=== PATIENT | female | born 1970 | race Caucasian/White ===

== ENCOUNTER 2023-09-15 22:19 | Inpatient (IN) | payer SELFPAY ==
[2023-09-15 22:36] VITALS: BP 133/82; PULSE 146; RESP 34; TEMP 36.9; O2SAT 98
--- NOTE | 2023-09-15 22:46 | ECG_ITS ---
[facility] [address] Test Date: 2023-09-15 Pat Name: Roman Royal Department: Room: Gender: F Strap Cutter: : 1970 Requested By: Indigo Pham Order Number: [id number] Mira MD: Seth Yap M.D. Measurements Intervals [place] Rate: 141 P: 21 NV: 125 QRS: -20 QRSD: 101 T: 32 QT: 305 QTc: 468 Interpretive Statements SINUS TACHYCARDIA LEFTWARD AXIS PREVIOUS ANTERIOR WALL DE ABNORMAL ECG No previous ECG available for comparison Electronically Signed On 09-16-2023 08:13:22 CDT by Seth Yap M.D.
[2023-09-15 23:04] LABS: Basophils Percent Auto 0.5 % (0.2-1.2); Eosinophils Percent Auto 0.4 % (0-4.4); Hematocrit 38.9 % (37.0-47.0); Hemoglobin 12.6 g/dL (12.0-15.0); Immature Granulocyte Absolute 0.05 K/mm3 (0.00-0.031); Immature Granulocyte Percent A 0.7 % (0-0.5); Lymphocytes Absolute Auto 0.17 K/mm3 (0.9-3.2); Lymphocytes Percent Auto 2.3 % (18.3-44.2); Mean Corpuscular HGB Conc 32.4 g/dl (32-36); Mean Corpuscular Hemoglobin 25.7 pg (26-34); Mean Corpuscular Volume 79.2 fl (80-100); Mean Platelet Volume 11.1 fl (7.4-10.4); Monocytes Absolute Auto 0.2 K/mm3 (0.1-0.6); Monocytes Percent Auto 2.7 % (2.6-8.5); Neutrophils Percent Auto 93.4 % (45.5-73.1); Platelet Count Result 194 k/mm3 (150-375); Red Blood Count 4.91 M/mm3 (4.2-5.4); White Blood Count 7.5 K/mm3 (4.5-10.0)
[2023-09-15] MEDS: LACTATED RINGERS 1,000 ML 999 ML IV CONT ×2 (23:12)
[2023-09-15] MEDS: LOPERAMIDE HCL 2 MG CAPSULE 4 MG PO (23:13)
[2023-09-15] MEDS: ONDANSETRON INJ 4 MG/2 ML VIAL IV PUSH (23:13)
[2023-09-15 23:19] LABS: Lactic Acid Reflex 1.9 mmol/L (0.7-2.0)
[2023-09-15 23:25] LABS: Alanine Aminotransferase 20 U/L (6-35); Albumin Level 3.6 g/dL (3.5-5.1); Alkaline Phosphatase 153 U/L (38-126); Anion Gap 7 mmol/L (4-12); Aspartate Amino Transferase 26 U/L (14-36); Bilirubin,Total 0.9 mg/dL (0.2-1.3); Blood Urea Nitrogen 15 mg/dL (7-17); Calcium 8.7 mg/dL (8.4-10.2); Carbon Dioxide 28 mmol/L (22-30); Chloride 92 mmol/L (98-107); Estimated CRCL calculation 53 ml/min; Estimated Glomerular Filt Rate 58; Glucose 548 mg/dL (65-110); Lipase 166 U/L (23-300); Potassium 3.7 mmol/L (3.4-5.0); Sodium 127 mmol/L (137-145)
[2023-09-15 23:30] LABS: Troponin I < 0.012 ng/mL (0.000-0.034)
[2023-09-16] VITALS (20 sets, daily range): BP systolic 128–185; BP diastolic 71–103; PULSE 81–148; RESP 16–20; TEMP 36.4–37.9; O2SAT 97–100; BMI 26.2
[2023-09-16] MEDS: dilTIAZem HCl INJ 25 MG/5 ML VIAL 10 MG IV PUSH ×2 (00:29→01:01)
[2023-09-16 00:31] LABS: Appearance Urine Clear (Clear); Bacteria Urine None Seen /hpf; Bilirubin Urine Negative (Negative); Blood Urine 2+ (Negative); Color Urine Yellow (Yellow); Glucose Urine UA 3+ mg/dL (Negative); Ketones Urine Negative (Negative); Leukocyte Esterase Ur Trace LEU/UL (Negative); Nitrate Urine Negative (Negative); Non Pathogenic Casts 0-2; Protein Urine 1+ mg/dL (Negative); Specific Grav Ur 1.024 (1.001-1.035); Squamous Epithelial Cell Urine None Seen /hpf (Few); WBC Urine 21-50 /hpf (0-3); pH Urine 6.5 (5.0-9.0)
[2023-09-16 00:34] LABS: Add Urine Microscopic? YES
--- NOTE | 2023-09-16 00:34 | ED.NAVMDI ---
HPI - Nausea/Vomiting/Diarrhea General Chief complaint: Nausea/Vomiting/Diarrhea Stated complaint: chills, N/V/D Time Seen by Provider: 09/15/23 22:45 History of Present Illness HPI Narrative: patient states that for last stay she has been having nausea, vomiting, diarrhea, and has not been able to keep anything down. She feels very tired. Denies any abdominal pain. Related Data Allergies Allergy/AdvReac Type Severity Reaction Status Date / Time No Known Allergies Allergy Unknown Unverified 12/29/07 10:53 Review of Systems Review of Systems: All systems reviewed & are unremarkable except as noted in HPI and below Exam Narrative: EXAMINATION OF ORGAN SYSTEMS/BODY AREAS: Constitutional: Vital signs per nursing GENERAL: Appears tired HEAD: Normal with no signs of head trauma. EYES: EOMI, conjunctiva normal ENT: Hearing grossly intact LUNGS: Nonlabored breathing. HEART: Tachycardic ABD: [Soft], [nontender to palpation] EXT: Normal range of motion SKIN: [No rashes or lesions.] NEURO: [Alert and oriented x 3. No gross focal sensory or strength deficits.] PSYCH: Normal affect Course Vital Signs Vital signs: Vital Signs Temperature 98.5 F 09/15/23 22:36 Pulse Rate 146 H 09/15/23 22:36 Respiratory Rate 34 H 09/15/23 22:36 Blood Pressure 133/82 09/15/23 22:36 Pulse Oximetry 98 09/15/23 22:36 Oxygen Delivery Room Air 09/15/23 22:36 Temperature 98.5 F 09/15/23 22:36 Pulse Rate 140 H 09/16/23 01:41 Respiratory Rate 16 09/16/23 01:41 Blood Pressure 152/97 H 09/16/23 01:41 Pulse Oximetry 100 09/16/23 01:41 Oxygen Delivery Room Air 09/15/23 22:36 MDM - Nausea/Vomiting/Diarrhea MDM Narrative Medical decision making narrative: Patient presenting with nausea, vomiting, dehydration, she is persistent tachycardic here, even after 2 L of IV fluids, she is feeling better with improved nausea vomiting however her heart rate continues to be 140s. I am highly suspicious of possible atrial flutter, will try controlling this with diltiazem, patient does not think she has a history of this, is agreeable to inpatient admission and further evaluation and treatment at this time. No improvement with diltiazem, patient agreeable to trying adenosine, 6 mg and 12 mg administered and patient now in sinus tachycardia, 120 he is heart rate, will continue to give IV fluids, discussed with hospitalist for admission. She states that she is feeling better. Lab Data 09/15/23 22:55 09/15/23 22:55 Labs: Lab Results 09/15/23 09/16/23 Range/Units 22:55 00:09 WBC 7.5 (4.5-10.0) K/mm3 RBC 4.91 (4.2-5.4) M/mm3 Hgb 12.6 (12.0-15.0) g/dL Hct 38.9 (37.0-47.0) % MCV 79.2 L (80-100) fl MCH 25.7 L (26-34) pg MCHC 32.4 (32-36) g/dl RDW 13.0 (11.5-14.5) % Plt Count 194 (150-375) k/mm3 MPV 11.1 H (7.4-10.4) fl Immature Gran % (Auto) 0.7 H (0-0.5) % Neut % (Auto) 93.4 H (45.5-73.1) % Lymph % (Auto) 2.3 L (18.3-44.2) % Sullivan % (Auto) 2.7 (2.6-8.5) % Eos % (Auto) 0.4 (0-4.4) % Baso % (Auto) 0.5 (0.2-1.2) % Lymph # (Auto) 0.17 L (0.9-3.2) K/mm3 Sullivan # (Auto) 0.2 (0.1-0.6) K/mm3 Eos # (Auto) 0.0 (0-0.3) K/mm3 Baso # (Auto) 0.0 (0.0-0.1) K/mm3 Abs Immat Gran (auto) 0.05 H (0.00-0.031) K/mm3 Absolute Neuts (auto) 7.0 H (1.3-6.7) K/mm3 Absolute Nucleated RBC 0.000 (0.0-0.012) K/mm3 Nucleated RBC % 0.0 (0.0-0.2) % Sodium 127 L (137-145) mmol/L Potassium 3.7 (3.4-5.0) mmol/L Chloride 92 L (98-107) mmol/L Carbon Dioxide 28 (22-30) mmol/L Anion Gap 7 (4-12) mmol/L BUN 15 (7-17) mg/dL Creatinine 1.00 (0.7-1.0) mg/dL Estim Creat Clear Calc 53 ml/min Estimated GFR 58 L (59 - ) Glucose 548 H* (65-110) mg/dL Lactic Acid 1.9 (0.7-2.0) mmol/L Calcium 8.7 (8.4-10.2) mg/dL Total Bilirubin 0.9 (0.2-1.3) mg/dL AST 26 (14-36) U/L ALT 20 (
[2023-09-16] MEDS: dilTIAZem 100 MG/100 ML 100 MG/100 ML BAG IV CONT (01:00)
--- NOTE | 2023-09-16 02:01 | PC.NURSE ---
This RN titrated pt cardizem drip up 5 around 0147 because heart rate was still in the 140s after 2 cardizem IV pushes and %mg of cardizem drip.
--- NOTE | 2023-09-16 02:34 | PM.IMHP ---
H&P: HPI History of Present Illness Date/Time: 09/16/23 02:34 Chief Complaint: Patient came to the ER for evaluation of nausea vomiting diarrhea and palpitations Narrative: Pleasant 50 years old lady who came to the ER complaining of feeling weak tired and fatigued with nausea vomiting diarrhea which is causing her to have palpitations. Workup was done in the ER which showed uncontrolled diabetes mellitus which sugar level of 548 and dehydration. Her lactic acid and anion gap were within normal limits ruling out DKA or lactic acidosis. Her heart rate was in 140s consistent with atrial flutter which is new for her. Patient given hydration and started on IV diltiazem drip after bolus which is helping with her heart rate. Patient started on was moderate dose insulin sliding scale with coverage. She is being admitted for IV hydration, IV Cardizem drip, tele monitoring, follow-up cardiac enzymes, cardiac evaluation, 2D echo and further workup. Review of Systems Review of Systems: 14 systems were reviewed with pertinent positives and negatives per HPI. Except as documented in the HPI/progress notes, all other systems were reviewed and are negative. All systems reviewed & are unremarkable except as noted in HPI and below Meds Home Medications and Allergies Allergies Allergy/AdvReac Type Severity Reaction Status Date / Time No Known Allergies Allergy Unknown Unverified 12/29/07 10:53 Vital Signs Vital Signs - 24 hr 09/15/23 22:36 09/16/23 01:00 09/16/23 01:41 Temperature 36.9 C Pulse Rate 146 H 143 H 140 H Respiratory Rate 34 H 16 Blood Pressure 133/82 185/103 H 152/97 H Pulse Oximetry 98 100 Oxygen Delivery Room Air Exam Narrative: PHYSICAL EXAMINATION: Vital signs: Please see the chart General physical exam: 53 years old white female, lying in bed, pleasant and cooperative with exam, appears to be weak tired and fatigued Head/eyes: Atraumatic, EOMI, PERRLA ENT: +dry mucous membranes, nasal passages clear Neck: Supple, full range of motion, trachea midline CVS: S1 + S2, + irregularly irregular rate and rhythm with rapid ventricular response Respiratory: Bilaterally fair air entry in both lung snyder, mild B/L crackles, symmetric chest expansion, no distress Abdomen: Soft, non-tender, bowel sounds +ve, no organomegaly Extremities: No clubbing, no cyanosis, no edema, no calf tenderness Musculoskeletal: Moves all, adequate range of motion, no muscle spasms Skin: Warm, dry, no jaundice, no cyanosis Neurological: Awake, alert, oriented x 3, cranial nerves II-XII intact, no focal neurological deficits Psychiatric: + anxious mood due to palpitations and dehydration, Non suicidal H&P: Results Labs Labs: Short CBC 09/15/23 Range/Units 22:55 WBC 7.5 (4.5-10.0) K/mm3 Hgb 12.6 (12.0-15.0) g/dL Hct 38.9 (37.0-47.0) % Plt Count 194 (150-375) k/mm3 BMP 09/15/23 22:55 Sodium 127 L Potassium 3.7 Chloride 92 L Carbon Dioxide 28 BUN 15 Creatinine 1.00 Glucose 548 H* Calcium 8.7 Cardiac Enzymes 09/15/23 Range/Units 22:55 Troponin I < 0.012 (0.000-0.034) ng/mL Liver Function 09/15/23 Range/Units 22:55 Total Bilirubin 0.9 (0.2-1.3) mg/dL AST 26 (14-36) U/L ALT 20 (6-35) U/L Alkaline Phosphatase 153 H (38-126) U/L Albumin 3.6 (3.5-5.1) g/dL Urine 09/16/23 Range/Units 00:09 Urine Color Yellow (Yellow) Urine Appearance Clear (Clear) Urine pH 6.5 (5.0-9.0) Ur Specific [place] 1.024 (1.001-1.035) Urine Protein 1+ H (Negative) mg/dL Urine Glucose (UA) 3+ H (Negative) mg/dL Assessment and Plan Assessment and plan (1) Uncontrolled blood glucose: Code(s): R73.09 - Other abnormal glucose Status: Acute (2) Dehydration: Code(s): E86.0 - Dehydration Status: Acute (3) New onset a-fib: Code(s): I48.91 - Unspecified atrial fibrillation Status: Deleted (4) New onset
--- NOTE | 2023-09-16 03:04 | PC.NURSE ---
This RN was verbally ordered by Dr. Romero to hang a bag of 1000L of Normal saline and 6 of adenosine at 0254 due to pt heart rate not decreasing off cardizem drip. Pt heart rate dropped to 120 then went right back up to 140s. Vero verbal ordered another 12 of adenosine at 0257. Pt heart rate decreased from 101 then incresed back to 139. Dr. romero states she will resume cardizem drip and titrate it another 5 while she speaks to global logistics analyst. This RN titrated cardizem to 15mg/hr at 0302.
[2023-09-16 04:25] LABS: Troponin I < 0.012 ng/mL (0.000-0.034)
[2023-09-16 04:54] LABS: Glucose Point of Care 360 mg/dl (65-105)
[2023-09-16] MEDS: POTASSIUM CHLORIDE 20 MEQ ER TABLET 40 MEQ PO (05:00)
[2023-09-16] MEDS: INSULIN ASPART (*BKC) 100 UNITS/ML 6 UNITS SUB-Q (05:03)
--- NOTE | 2023-09-16 05:11 | ADMGEN ---
This patient, Roman Royal, was admitted to IMU Room 209-01 on 09/16/23 at 0430. Patient/family oriented to hospital policies and general routines including ID bracelet, bed and alarms, visiting hours, pain management, procedures, bathroom and other care routines, personal items, smoking policy, room service/diet, and visiting hours. Information on how to activate the Rapid Response Team has been discussed. Patient/Family are encouraged to report perceived risks to care and to ask questions if they do not understand what they are told or what they should do.
[2023-09-16] MEDS: SODIUM CHLORIDE 0.9% IV 1,000 ML 75 ML IV CONT ×2 (06:16→19:23)
[2023-09-16] MEDS: KCL 20 MEQ/SW 100 ML 100 ML 50 MEQ IVPB (06:17)
--- NOTE | 2023-09-16 06:48 | PC.NURSE ---
09/16/23 @ 0430-Pt arrived to IMU with cardizem gtt running at 15mg/hr. Order changed per ER .
[2023-09-16 08:08] LABS: Glucose Point of Care 316 mg/dl (65-105)
[2023-09-16] MEDS: dilTIAZem 100 MG/100 ML 100 MG/100 ML BAG 15 MG IV CONT (08:47)
[2023-09-16] MEDS: ASCORBIC ACID 500 MG TABLET PO (08:55)
[2023-09-16] MEDS: ASPIRIN 81 MG CHEWABLE TABLET PO (08:55)
[2023-09-16] MEDS: VITAMIN E 1,000 UNIT CAPSULE 1000 UNIT PO (08:55)
[2023-09-16] MEDS: OMEGA 3 POLYUNSAT FATTY ACIDS 1 GM CAP PO (08:55)
[2023-09-16] MEDS: CHOLECALCIFEROL 1,000 UNITS TABLET 2000 UNITS PO (08:55)
[2023-09-16] MEDS: MULTIVITAMIN HEMATINIC (*BKC) TABLET 1 TABLET PO (08:56)
[2023-09-16] MEDS: ZINC SULFATE 220 MG CAPSULE PO (08:56)
[2023-09-16] MEDS: ENOXAPARIN 40 MG/0.4 ML SYRINGE SUB-Q (08:56)
[2023-09-16] MEDS: INSULIN ASPART (*BKC) 100 UNITS/ML SUB-Q ×2 (08:58→16:34)
--- NOTE | 2023-09-16 09:27 | PM.CNCAR ---
Assessment and Plan Assessment and plan (1) Tachyarrhythmia: Code(s): R00.0 - Tachycardia, unspecified Status: Acute Plan This is a 53-year-old lady who has sinus tachycardia as a function of her gastroenteritis with some volume depletion as well as having very poorly controlled diabetes with a blood glucose of over 500. She does not have any cardiac arrhythmia other than sinus tachycardia which is of course a physiologic, not a pathologic arrhythmia. IV diltiazem will be stopped at this time. No further cardiac workup of this is necessary. It is extremely important that she receives some affective treatment of her diabetes. Explained to the patient that it is a very poor decision declined medical treatment of diabetes. Seth Yap MD [facility] History of Present Illness History of Present Illness Consult date/time: 09/16/23 09:27 Reason For Visit: Tachycardia, N/V/D Narrative: This is a 53-year-old lady I am seeing at the request of the hospitalist today apparently because she was suspected of having an atrial tachyarrhythmia such as atrial flutter after present to the emergency room last evening. She came to the emergency department because she has been feeling ill for the last 5-6 days with nausea abdominal cramping some diarrhea and vomiting. She has had these symptoms and felt bad enough yesterday where she elected to come into the emergency room. She thought earlier in the day the symptoms were resolving and she had some sort of gastroenteritis that would pass but she felt bad enough to come in to be seen. In the emergency room her electrocardiogram shows sinus tachycardia with a heart rate of 141. This was suspected of representing atrial flutter and so she was started on a IV diltiazem infusion and admitted to the hospital. Her lab data was also remarkable for evidence of dehydration and marked hyperglycemia with a blood glucose level of over 500. The patient states that she is known to have diabetes and has elected not to treat her diabetes because she can not afford her medication. Since being admitted to the hospital she remains in sinus rhythm/sinus tachycardia. She was not aware of any sense of chest pain shortness of breath palpitations she describes no history of syncope orthopnea or PND. Review of Systems Constitutional: Constitutional: Reports lethargy Eyes: Eyes: Reports no additional eye complaints ENT: Reports system reviewed and no additional complaints, except as documented Cardiovascular: Cardiovascular: Reports no additional cardiovascular complaints Respiratory: Respiratory: Reports no additional respiratory complaints Gastrointestinal: Gastrointestinal: Reports as per HPI, Reports diarrhea, Reports nausea and Reports vomiting Genitourinary: Genitourinary: Reports no additional female genitourinary complaints Musculoskeletal: Musculoskeletal: Reports no additional musculoskeletal complaints Integumentary/Breasts: Skin/Breast: Reports system reviewed and no additional complaints, except as docu Neurologic: Reports system reviewed and no additional complaints, except as documented Endocrine: Endocrine: Reports no additional endocrine complaints Hematologic/Lymphatic: Hematologic/Lymphatic: Reports no additional hematologic/lymphatic complaints Allergic/Immunologic: Allergic/Immunologic: Reports no additional allergic/immunologic complaints [facility] Family History Family History Mother Enlarged heart Hypertension Diabetes mellitus Father Kidney failure Diabetes mellitus Hypertension Social History Social History Smoking packs per day: 0.5 Smoking cigarettes per day: 10.0 Years smoked: 3 Smoking pack-years: 1.50 Smoking status: Former smoker Tobacco type: cigarettes Alcohol intake: never Substance use: never Substance use type: does not use Do Yo
[2023-09-16 10:58] LABS: Anion Gap 4 mmol/L (4-12); Blood Urea Nitrogen 10 mg/dL (7-17); Calcium 8.2 mg/dL (8.4-10.2); Carbon Dioxide 28 mmol/L (22-30); Chloride 94 mmol/L (98-107); Estimated CRCL calculation 48 ml/min; Estimated Glomerular Filt Rate 52; Glucose 359 mg/dL (65-110); Potassium 4.3 mmol/L (3.4-5.0); Sodium 126 mmol/L (137-145); Troponin I < 0.012 ng/mL (0.000-0.034)
--- NOTE | 2023-09-16 11:09 | PM.IMPN ---
Progress Note: A&P Assessment and Plan (1) Uncontrolled blood glucose: Code(s): R73.09 - Other abnormal glucose Status: Acute (2) Dehydration: Code(s): E86.0 - Dehydration Status: Acute (3) New onset atrial flutter: Code(s): I48.92 - Unspecified atrial flutter Status: Acute Plan Continuous cardiac tele-monitoring Patient received 2 L IV hydration in the ER Gentle IV hydration ordered with normal saline at 75 cc/hour Strict input and output monitoring Monitor renal functions closely Patient given IV Cardizem bolus in the ER -started on IV Cardizem drip to be titrated to keep heart rate around 100 1st set of cardiac enzymes is negative cardiology saw her- stopped the drip- no further cardiac workup needed Hemoglobin A1c level ordered Continue diabetic meds Accu-Cheks qAC and qHS ordered with medium-dose insulin coverage as per protocol Monitor blood sugar levels closely -will add lantus -will add diabetic education - pot was not on any emds as could not afford them and wasnot seen per pcp in a while Patient ordered IV and oral potassium replacement for borderline potassium which will go down when patient's blood sugar has improved Repeat labs in a.m. Electrolyte replacement as per protocol. Patient will be monitored very closely on the floor. home meds reviewed Time Spent With Patient Time with patient: Greater than 35 minutes Subjective Date/time seen: 09/16/23 11:09 Interval history: 50 years old female with PMH [id number] complinat with meds, admitted from ER complaining of feeling weak tired and fatigued with nausea vomiting diarrhea. Workup was done in the ER which showed uncontrolled diabetes mellitus which sugar level of 548 and dehydration. Her lactic acid and anion gap were within normal limits ruling out DKA or lactic acidosis. Her heart rate was in 140s consistent with atrial flutter which is new for her. Patient given hydration and started on IV diltiazem drip after bolus which is helping with her heart rate. Patient started on was moderate dose insulin sliding scale with coverage. She is being admitted for IV hydration, IV Cardizem drip, tele monitoring, follow-up cardiac enzymes, cardiac evaluation, 2D echo and further workup. 09/15- this am HR in 110- she was seen per card and cardiac work up at this time is not warranted. Her cardizem drip drip was stopped. Goal is to re-hydrate, get BS under control. consult to clinical systems educator. Need to find new PCP and insulin regimen to go home on. Pt omid have insurance-so cannot get anything expensive. She works nights- so drinks a lot of caffeinated drinks- including regular soda-which we discussed with her she would need to stop and switch to sugar free. she also has to be careful; with caffeine-as it can further cause dehydration and cause tachycardia. We will movers her out of IMU to tele floor, focus on diabetic educations, work with care coordination to set up PCP and find resources for medication assistance. if stable tomorrow- possible discharge Review of Systems Review of Systems: 14 systems were reviewed with pertinent positives and negatives per HPI. Except as documented in the HPI/progress notes, all other systems were reviewed and are negative. All systems reviewed & are unremarkable except as noted in HPI and below Constitutional: Constitutional: Denies body ache(s) and Denies chills Cardiovascular: Cardiovascular: Denies chest pain and Reports palpitations Respiratory: Respiratory: Denies chest congestion and Denies cough Gastrointestinal: Gastrointestinal: Reports diarrhea, Reports nausea and Reports vomiting Exam Narrative: PHYSICAL EXAMINATION: Vital signs: Please see the chart General physical exam: 53 years old white female, lying in bed, pleasant and cooperative with exam, appears to be weak tired and fatigued Head/eyes: Atraumatic, EOMI, PERRLA ENT: +dry mucous membranes, nasal passages clear N
[2023-09-16 12:21] LABS: Glucose Point of Care 315 mg/dl (65-105)
[2023-09-16] MEDS: INSULIN ASPART (*BKC) 100 UNITS/ML 10 UNITS SUB-Q (12:26)
[2023-09-16 13:08] LABS: Cholesterol 147 mg/dL (0-200); HDL Direct 11 mg/dL; Triglycerides 263 mg/dL (<150)
[2023-09-16 13:19] LABS: LDL Cholesterol Direct 91 mg/dL
[2023-09-16 14:09] LABS: Glucose Point of Care 250 mg/dl (65-105)
[2023-09-16 16:31] LABS: Glucose Point of Care 235 mg/dl (65-105)
[2023-09-16 20:51] LABS: Glucose Point of Care 277 mg/dl (65-105)
[2023-09-16] MEDS: INSULIN GLARGINE (*BKC) 100 UNITS/ML 15 UNITS SUB-Q (21:24)
[2023-09-17] VITALS (11 sets, daily range): BP systolic 140–151; BP diastolic 78–95; PULSE 103–114; RESP 16–20; TEMP 36.1–36.9; O2SAT 97–100
[2023-09-17 04:48] LABS: Basophils Percent Auto 0.4 % (0.2-1.2); Eosinophils Absolute Auto 0.1 K/mm3 (0-0.3); Eosinophils Percent Auto 1.3 % (0-4.4); Hematocrit 33.5 % (37.0-47.0); Hemoglobin 10.4 g/dL (12.0-15.0); Immature Granulocyte Absolute 0.07 K/mm3 (0.00-0.031); Immature Granulocyte Percent A 0.7 % (0-0.5); Lymphocytes Absolute Auto 0.64 K/mm3 (0.9-3.2); Mean Corpuscular Hemoglobin 25.4 pg (26-34); Mean Corpuscular Volume 81.7 fl (80-100); Mean Platelet Volume 11.2 fl (7.4-10.4); Monocytes Absolute Auto 0.9 K/mm3 (0.1-0.6); Monocytes Percent Auto 8.2 % (2.6-8.5); Neutrophils Percent Auto 83.4 % (45.5-73.1); Platelet Count Result 185 k/mm3 (150-375); Red Cell Distribution Width 13.1 % (11.5-14.5); White Blood Count 10.8 K/mm3 (4.5-10.0)
[2023-09-17 05:05] LABS: Anion Gap 4 mmol/L (4-12); Blood Urea Nitrogen 11 mg/dL (7-17); Calcium 8.4 mg/dL (8.4-10.2); Carbon Dioxide 28 mmol/L (22-30); Chloride 101 mmol/L (98-107); Estimated CRCL calculation 58 ml/min; Estimated Glomerular Filt Rate > 60; Glucose 238 mg/dL (65-110); Magnesium 1.7 mg/dL (1.6-2.3); Phosphorus 2.5 mg/dL (2.5-4.5); Potassium 3.9 mmol/L (3.4-5.0); Sodium 133 mmol/L (137-145)
[2023-09-17 07:36] LABS: Glucose Point of Care 195 mg/dl (65-105)
[2023-09-17] MEDS: SODIUM CHLORIDE 0.9% IV 1,000 ML 75 ML IV CONT (07:51)
[2023-09-17] MEDS: MULTIVITAMIN HEMATINIC (*BKC) TABLET 1 TABLET PO (07:52)
[2023-09-17] MEDS: ASCORBIC ACID 500 MG TABLET PO (07:52)
[2023-09-17] MEDS: ZINC SULFATE 220 MG CAPSULE PO (07:52)
[2023-09-17] MEDS: ASPIRIN 81 MG CHEWABLE TABLET PO (07:52)
[2023-09-17] MEDS: CHOLECALCIFEROL 1,000 UNITS TABLET 2000 UNITS PO (07:52)
[2023-09-17] MEDS: OMEGA 3 POLYUNSAT FATTY ACIDS 1 GM CAP PO (07:53)
[2023-09-17] MEDS: VITAMIN E 1,000 UNIT CAPSULE 1000 UNIT PO (07:53)
[2023-09-17] MEDS: ENOXAPARIN 40 MG/0.4 ML SYRINGE SUB-Q (09:44)
--- NOTE | 2023-09-17 10:07 | PM.IMPN ---
Progress Note: A&P Assessment and Plan (1) Uncontrolled blood glucose: Code(s): R73.09 - Other abnormal glucose Status: Acute (2) Dehydration: Code(s): E86.0 - Dehydration Status: Acute (3) New onset atrial flutter: Code(s): I48.92 - Unspecified atrial flutter Status: Acute Plan Continuous cardiac tele-monitoring Patient received 2 L IV hydration in the ER Gentle IV hydration ordered with normal saline at 75 cc/hour-will stop today Strict input and output monitoring Monitor renal functions closely Patient given IV Cardizem bolus in the ER -started on IV Cardizem drip to be titrated to keep heart rate around 100 1st set of cardiac enzymes is negative cardiology saw her- stopped the drip- no further cardiac workup needed Hemoglobin A1c level ordered Continue diabetic meds Accu-Cheks qAC and qHS ordered with medium-dose insulin coverage as per protocol Monitor blood sugar levels closely - lantus 15 units- started last night 09/15 -will add diabetic education - pt was not on any meds as could not afford them and was not seen per pcp in a while Patient ordered IV and oral potassium replacement for borderline potassium which will go down when patient's blood sugar has improved Repeat labs in a.m. Electrolyte replacement as per protocol. Patient will be monitored very closely on the floor. home meds reviewed Time Spent With Patient Time with patient: 25 - 35 minutes Subjective Date/time seen: 09/17/23 10:07 Interval history: 50 years old female with PMH [id number] compliant with meds, admitted from ER complaining of feeling weak tired and fatigued with nausea vomiting diarrhea. Workup was done in the ER which showed uncontrolled diabetes mellitus which sugar level of 548 and dehydration. Her lactic acid and anion gap were within normal limits ruling out DKA or lactic acidosis. Her heart rate was in 140s consistent with atrial flutter which is new for her. Patient given hydration and started on IV diltiazem drip after bolus which is helping with her heart rate. Patient started on was moderate dose insulin sliding scale with coverage. She is being admitted for IV hydration, IV Cardizem drip, tele monitoring, follow-up cardiac enzymes, cardiac evaluation, 2D echo and further workup. 09/15- this am HR in 110- she was seen per card and cardiac work up at this time is not warranted. Her cardizem drip drip was stopped. Goal is to re-hydrate, get BS under control. consult to educator senior clinical. Need to find new PCP and insulin regimen to go home on. Pt doensot have insurance-so cannot get anything expensive. She works nights- so drinks a lot of caffeinated drinks- including regular soda-which we discussed with her she would need to stop and switch to sugar free. she also has to be careful; with caffeine-as it can further cause dehydration and cause tachycardia. We will house mover her out of IMU to tele floor, focus on diabetic educations, work with care coordination to set up PCP and find resources for medication assistance. if stable tomorrow- possible discharge. 09/16- pt met with educator senior clinical yesterday, [facility] assistance program info is provided for pt. administrative operations coordinator met with pt- info is provided on PCP and good RX. BS this am is 195. Averaging in 250's now. Will discuss initiating statin for primary prevention- agreeable to start. will need ophthalmology f/u yearly as well as microalb/cr yearly lab. Move out of IMU- monitor till tomorrow and anticipate discharge tomorrow. Review of Systems Review of Systems: 14 systems were reviewed with pertinent positives and negatives per HPI. Except as documented in the HPI/progress notes, all other systems were reviewed and are negative. She reports feeling better today All systems reviewed & are unremarkable except as noted in HPI and below Constitutional: Constitutional: Denies body ache(s) and Denies chills Cardiovascular: Cardiovascular: Denies chest p
[2023-09-17] MEDS: INSULIN ASPART (*BKC) 100 UNITS/ML SUB-Q ×2 (11:38→16:53)
[2023-09-17 11:42] LABS: Glucose Point of Care 266 mg/dl (65-105)
[2023-09-17 16:52] LABS: Glucose Point of Care 257 mg/dl (65-105)
[2023-09-17 20:08] LABS: Glucose Point of Care 192 mg/dl (65-105)
[2023-09-17] MEDS: ATORVASTATIN 10 MG TABLET PO (20:53)
[2023-09-17] MEDS: INSULIN GLARGINE (*BKC) 100 UNITS/ML 15 UNITS SUB-Q (20:55)
[2023-09-18] VITALS (7 sets, daily range): BP systolic 166–171; BP diastolic 95–104; PULSE 99–115; RESP 20; TEMP 36.8; O2SAT 100
[2023-09-18 04:45] LABS: Basophils Percent Auto 0.3 % (0.2-1.2); Eosinophils Absolute Auto 0.1 K/mm3 (0-0.3); Eosinophils Percent Auto 1.6 % (0-4.4); Hematocrit 32.6 % (37.0-47.0); Hemoglobin 10.1 g/dL (12.0-15.0); Immature Granulocyte Absolute 0.11 K/mm3 (0.00-0.031); Immature Granulocyte Percent A 1.4 % (0-0.5); Lymphocytes Absolute Auto 0.71 K/mm3 (0.9-3.2); Lymphocytes Percent Auto 9.2 % (18.3-44.2); Mean Corpuscular Hemoglobin 25.3 pg (26-34); Mean Corpuscular Volume 81.5 fl (80-100); Mean Platelet Volume 11.4 fl (7.4-10.4); Monocytes Absolute Auto 0.7 K/mm3 (0.1-0.6); Monocytes Percent Auto 9.1 % (2.6-8.5); Neutrophils Absolute Auto 6.1 K/mm3 (1.3-6.7); Neutrophils Percent Auto 78.4 % (45.5-73.1); Platelet Count Result 207 k/mm3 (150-375); Red Cell Distribution Width 13.2 % (11.5-14.5); White Blood Count 7.7 K/mm3 (4.5-10.0)
[2023-09-18 05:01] LABS: Anion Gap 6 mmol/L (4-12); Blood Urea Nitrogen 11 mg/dL (7-17); Calcium 8.6 mg/dL (8.4-10.2); Carbon Dioxide 28 mmol/L (22-30); Chloride 99 mmol/L (98-107); Estimated CRCL calculation 65 ml/min; Estimated Glomerular Filt Rate > 60; Glucose 247 mg/dL (65-110); Potassium 3.6 mmol/L (3.4-5.0); Sodium 133 mmol/L (137-145)
[2023-09-18 08:09] LABS: Glucose Point of Care 197 mg/dl (65-105)
[2023-09-18] MEDS: VITAMIN E 1,000 UNIT CAPSULE 1000 UNIT PO (09:26)
[2023-09-18] MEDS: MULTIVITAMIN HEMATINIC (*BKC) TABLET 1 TABLET PO (09:26)
[2023-09-18] MEDS: ASCORBIC ACID 500 MG TABLET PO (09:26)
[2023-09-18] MEDS: OMEGA 3 POLYUNSAT FATTY ACIDS 1 GM CAP PO (09:26)
[2023-09-18] MEDS: ENOXAPARIN 40 MG/0.4 ML SYRINGE SUB-Q (09:27)
[2023-09-18] MEDS: ZINC SULFATE 220 MG CAPSULE PO (09:27)
[2023-09-18] MEDS: ASPIRIN 81 MG CHEWABLE TABLET PO (09:27)
[2023-09-18] MEDS: CHOLECALCIFEROL 1,000 UNITS TABLET 2000 UNITS PO (09:27)
[2023-09-18] MEDS: carvediloL 6.25 MG TABLET PO (10:02)
[2023-09-18 11:27] LABS: Glucose Point of Care 199 mg/dl (65-105)
--- NOTE | 2023-09-18 13:37 | PM.DS ---
DS: Admitting Diagnosis Discharge Date 09/19/2023 Admitting Diagnosis Hyperglycemia/Nausea and vomiting DS: Discharge Diagnosis Discharge Diagnosis (1) Uncontrolled blood glucose: Code(s): R73.09 - Other abnormal glucose Status: Acute (2) Dehydration: Code(s): E86.0 - Dehydration Status: Acute (3) New onset atrial flutter: Code(s): I48.92 - Unspecified atrial flutter Status: Acute (4) Diabetes mellitus: Qualifiers: Diabetes mellitus complication status: with hyperglycemia Diabetes mellitus mcc insulin use: without long term care social worker use Diabetes mellitus type: type 2 Qualified Code(s): E11.65 - Type 2 diabetes mellitus with hyperglycemia Code(s): E11.9 - Type 2 diabetes mellitus without complications Status: Acute Plan Continuous cardiac tele-monitoring Patient received 2 L IV hydration in the ER Gentle IV hydration ordered with normal saline at 75 cc/hour-will stop today Strict input and output monitoring Monitor renal functions closely Patient given IV Cardizem bolus in the ER -started on IV Cardizem drip to be titrated to keep heart rate around 100 1st set of cardiac enzymes is negative cardiology saw her- stopped the drip- no further cardiac workup needed Hemoglobin A1c level ordered Continue diabetic meds Accu-Cheks qAC and qHS ordered with medium-dose insulin coverage as per protocol Monitor blood sugar levels closely - lantus 15 units- started last night 09/15 -will add diabetic education - pt was not on any meds as could not afford them and was not seen per pcp in a while Patient ordered IV and oral potassium replacement for borderline potassium which will go down when patient's blood sugar has improved Repeat labs in a.m. Electrolyte replacement as per protocol. Patient will be monitored very closely on the floor. home meds reviewed DS: Summary Hospital Course Reason for hospitalization: Hyperglycemia/Nausea and vomiting Hospital Course: Admission: Medical record Interval history: 50 years old female with PMH [id number] compliant with meds, admitted from ER complaining of feeling weak tired and fatigued with nausea vomiting diarrhea. Workup was done in the ER which showed uncontrolled diabetes mellitus which sugar level of 548 and dehydration. Her lactic acid and anion gap were within normal limits ruling out DKA or lactic acidosis. Her heart rate was in 140s consistent with atrial flutter which is new for her. Patient given hydration and started on IV diltiazem drip after bolus which is helping with her heart rate. Patient started on was moderate dose insulin sliding scale with coverage. She is being admitted for IV hydration, IV Cardizem drip, tele monitoring, follow-up cardiac enzymes, cardiac evaluation, 2D echo and further workup. 09/15- this am HR in 110- she was seen per card and cardiac work up at this time is not warranted. Her cardizem drip drip was stopped. Goal is to re-hydrate, get BS under control. consult to personal development educator. Need to find new PCP and insulin regimen to go home on. Pt doensot have insurance-so cannot get anything expensive. She works nights- so drinks a lot of caffeinated drinks- including regular soda-which we discussed with her she would need to stop and switch to sugar free. she also has to be careful; with caffeine-as it can further cause dehydration and cause tachycardia. We will insurance specialist her out of IMU to tele floor, focus on diabetic educations, work with care coordination to set up PCP and find resources for medication assistance. if stable tomorrow- possible discharge. 09/16- pt met with personal development educator yesterday, [facility] assistance program info is provided for pt. credit coordinator met with pt- info is provided on PCP and good RX. BS this am is 195. Averaging in 250's now. Will discuss initiating statin for primary prevention- agreeable to start. will need ophthalmology f/u yearly as well as microalb/cr year
== END 2023-09-18 15:35 | disposition home or self-care (01) | DRG 422 ==
LOC: ANHED 09-16 03:18 → ANHIMU 09-16 03:59
PROVIDERS: Nurse Practitioner; Admitting Provider Family Medicine; Emergency Provider Emergency Medicine; Visit Provider Nurse Practitioner Family
DX: E86.0 Dehydration (principal); I48.92 Unspecified atrial flutter; E11.65 Type 2 diabetes mellitus with hyperglycemia; Z87.891 Personal history of nicotine dependence; Z79.82 Long term (current) use of aspirin; Z91.141 Patient's other noncompliance with medication regimen due to financial hardship
CPT/HCPCS: 36415; 80048; 80053; 80061; 81001; 82948; 83036; 83605; 83690; 83735; 84100; 84443; 84484; 85025; 87086; 93005; 96361; 96365; 96366; 96374; 96376; 99285; A9270; J0153; J1650; J1815; J2405; J3480; J7030; J7120